=== PATIENT | male | born 1940 | race Caucasian/White ===

== ENCOUNTER 2022-07-29 12:50 | Emergency (ER) | payer MEDICARE, OTHER ==
[~2022-07-29] VITALS: Ht 177.8 cm; Wt 79.8 kg
[~2022-07-29 12:50] MED LIST: CAND32TA20 PO; LEVO150T8 PO; METO25TA6 PO; PHEN100C4 PO; SIMV-49 PO
--- NOTE | 2022-07-29 13:20 | NUR ---
Dr Hernandez at the bedside for MSE.
[2022-07-29 13:30] LABS: *BILIRUBIN,URIN NEGATIVE (NEGATIVE); *BLOOD, URINE 3+ (NEGATIVE); *CLARITY,URINE CLEAR (CLEAR); *COLOR,URINE YELLOW (YELLOW); *KETONES,URINE NEGATIVE (NEGATIVE); *UROBILINOGEN,URINE 0.2 E.U./dl (NORMAL); LEUKOCYTE ESTERASE ,URINE NEGATIVE (NEGATIVE); NITRITE, URINE NEGATIVE (NEGATIVE)
[2022-07-29 13:38] LABS: HEMATOCRIT 49.4 % (36.7-47.1); MEAN CORPUSCULAR HEMOGLOBIN 26.8 uug (23.8-33.4); MEAN CORPUSCULAR VOLUME 85.5 fL (73.0-96.2); PLATELET COUNT (AUTO) 174 K/uL (152-348)
[2022-07-29 13:41] LABS: UGLUCOSE 2+ (NEGATIVE)
[2022-07-29] MEDS ORDERED: MAGN64TA9 PO (13:46)
[2022-07-29] MEDS ORDERED: GLIP5TAB13 PO (13:46)
[2022-07-29] MEDS ORDERED: ZINC50TA39 PO (13:46)
[2022-07-29] MEDS ORDERED: ASCO500C18 PO (13:46)
[2022-07-29] MEDS ORDERED: vitamin d PO (13:46)
[2022-07-29] MEDS ORDERED: amlodipine PO (13:46)
[2022-07-29] MEDS ORDERED: ASPI81TA31 PO (13:46)
[2022-07-29] MEDS ORDERED: PYRI-6 PO (13:46)
[2022-07-29] MEDS ORDERED: LINA5TAB PO (13:46)
[2022-07-29] MEDS ORDERED: ROSU40TA PO (13:46)
[2022-07-29] MEDS ORDERED: LOSA100T31 PO (13:46)
[2022-07-29] MEDS ORDERED: PIOG15TA8 PO (13:46)
[2022-07-29 13:53] LABS: CARBON DIOXIDE 26 mmol/L (21-32); CHLORIDE 103 mmol/L (98-107); CREATININE 1.8 mg/dL (0.6-1.3); GLUCOSE 170 mg/dL (74-106); POTASSIUM 4.4 mmol/L (3.5-5.1); UREA NITROGEN, BLOOD 37 mg/dL (7-18)
[2022-07-29 15:06] VITALS: BP 143/78
--- NOTE | 2022-07-29 15:09 | NUR ---
Patient discharged to home in stable condition. Written and verbal after care instructions given. Patient verbalizes understanding of instructions. Stressed follow up or return to ER for worsening s/s.
[2022-07-29 22:50] LABS: RBC,URINE 80-100 /HPF (0-3)
[2022-07-29 22:51] LABS: BACTERIA,URINE FEW /HPF (NONE SEEN); SQUAMOUS EPITHELIAL CELL,UR FEW /HPF (NONE SEEN); WBC,URINE NONE SEEN /HPF (0-3)
== END 2022-07-29 15:09 | disposition home or self-care (01) ==
LOC: ER 12:57
DX: R31.9 Hematuria, unspecified (principal); K40.20 Bilateral inguinal hernia, without obstruction or gangrene, not specified as recurrent; I25.10 Atherosclerotic heart disease of native coronary artery without angina pectoris; Z95.5 Presence of coronary angioplasty implant and graft; E78.5 Hyperlipidemia, unspecified; E03.9 Hypothyroidism, unspecified; E11.9 Type 2 diabetes mellitus without complications; Z79.82 Long term (current) use of aspirin; Z79.84 Long term (current) use of oral hypoglycemic drugs; Z79.890 Hormone replacement therapy; Z85.828 Personal history of other malignant neoplasm of skin; I10 Essential (primary) hypertension; N28.9 Disorder of kidney and ureter, unspecified; G89.18 Other acute postprocedural pain; K80.20 Calculus of gallbladder without cholecystitis without obstruction
CPT/HCPCS: 36415; 85025; 85730; A4663